=== PATIENT | male | born 1945 | race Caucasian/White ===

== ENCOUNTER 2018-06-17 08:10 | Inpatient (IN) | payer OTHER, MEDICARE ==
[~2018-06-17] VITALS: Ht 172.7 cm; Wt 75.9 kg
[2018-06-17 08:52] LABS: CALCIUM 9.1 mg/dL (8.5-10.1); CARBON DIOXIDE 27.2 mmol/L (21-32); CHLORIDE SERUM 102 mmol/L (98-107); CREATININE SERUM 1.2 mg/dL (0.7-1.3); GLUCOSE SERUM 105 mg/dL (74-106); POTASSIUM SERUM 4.3 mmol/L (3.5-5.1); SODIUM SERUM 139 mmol/L (136-145)
[2018-06-17 08:53] LABS: BASOPHIL % 0.6 % (0-2); PLATELET COUNT 130 x10^3mcL (130-400)
[2018-06-17 08:54] LABS: RED CELL DISTRIBUTION WIDTH 17.2 % (11.5-14.5)
[2018-06-17 08:57] LABS: ALKALINE PHOSPHATASE 123 U/L (46-116); ALT/SGPT 29 U/L (16-63); AST/SGOT 29 U/L (15-37); BILIRUBIN TOTAL 0.5 mg/dL (0.20-1.00); LIPASE 183 IU/L (73-393); TOTAL PROTEIN, SERUM 7.5 g/dL (6.4-8.2)
[2018-06-17] MEDS ORDERED: PRAVASTATIN SOD10 M1 PO (12:47)
[2018-06-17] MEDS ORDERED: XARELTO10 M1 PO (12:47)
[2018-06-17] MEDS ORDERED: MICARDIS80 MG PO (12:47)
[2018-06-17] MEDS ORDERED: BISOPROLOL FUMAR5 MG PO (12:48)
[2018-06-17] MEDS ORDERED: CARDIZEM CD180 MG PO (12:51)
[2018-06-17] MEDS ORDERED: LEVOTHYROXINE0.1 M2 PO (12:52)
[2018-06-17 13:49] LABS: CHOLESTEROL/HDL RATIO 2.7
[2018-06-17 14:00] VITALS: BP 142/68
[2018-06-17 14:19] LABS: microscopic required? NO
[2018-06-17 14:43] LABS: urine erythrocyte NEGATIVE (NEGATIVE)
[2018-06-17 16:33] VITALS: BP 136/73
[2018-06-17 20:33] VITALS: BP 112/51
[2018-06-18 06:07] VITALS: BP 116/68
[2018-06-18 06:49] LABS: CALCIUM 8.8 mg/dL (8.5-10.1); CARBON DIOXIDE 26.5 mmol/L (21-32); CHLORIDE SERUM 108 mmol/L (98-107); CREATININE SERUM 1.1 mg/dL (0.7-1.3); GLUCOSE SERUM 82 mg/dL (74-106); POTASSIUM SERUM 4.1 mmol/L (3.5-5.1); SODIUM SERUM 143 mmol/L (136-145)
[2018-06-18 07:58] LABS: PLATELET COUNT 103 x10^3mcL (130-400); RED CELL DISTRIBUTION WIDTH 16.4 % (11.5-14.5)
[2018-06-18 07:59] LABS: BASOPHIL % 0.9 % (0-2)
[2018-06-18 09:15] VITALS: BP 144/74
[2018-06-18 12:40] VITALS: BP 135/67
[2018-06-18 14:45] VITALS: BP 129/57
[2018-06-18 17:51] VITALS: BP 143/64
[2018-06-18 20:41] VITALS: BP 124/51
[2018-06-19 06:31] VITALS: BP 133/65
[2018-06-19 06:43] LABS: CALCIUM 8.9 mg/dL (8.5-10.1); CARBON DIOXIDE 29.7 mmol/L (21-32); CHLORIDE SERUM 106 mmol/L (98-107); CREATININE SERUM 1.1 mg/dL (0.7-1.3); GLUCOSE SERUM 95 mg/dL (74-106); POTASSIUM SERUM 4.1 mmol/L (3.5-5.1); SODIUM SERUM 144 mmol/L (136-145)
[2018-06-19 06:59] LABS: BASOPHIL % 1.1 % (0-2); PLATELET COUNT 131 x10^3mcL (130-400); RED CELL DISTRIBUTION WIDTH 16.5 % (11.5-14.5)
[2018-06-19 12:39] VITALS: BP 149/72
[2018-06-19 17:52] VITALS: BP 144/68
[2018-06-19 21:28] VITALS: BP 107/71
[2018-06-20 06:59] LABS: CALCIUM 8.9 mg/dL (8.5-10.1); CARBON DIOXIDE 24.8 mmol/L (21-32); CHLORIDE SERUM 102 mmol/L (98-107); CREATININE SERUM 1.1 mg/dL (0.7-1.3); GLUCOSE SERUM 138 mg/dL (74-106); POTASSIUM SERUM 4.1 mmol/L (3.5-5.1); SODIUM SERUM 137 mmol/L (136-145)
[2018-06-20 07:26] LABS: BASOPHIL % 0.1 % (0-2); PLATELET COUNT 103 x10^3mcL (130-400); RED CELL DISTRIBUTION WIDTH 15.9 % (11.5-14.5)
[2018-06-20 13:10] VITALS: BP 146/70
[2018-06-20 17:27] VITALS: BP 112/55
[2018-06-20 18:04] VITALS: Ht 172.7 cm; Wt 75.9 kg
[2018-06-20 22:30] VITALS: BP 141/69
[2018-06-21 07:00] VITALS: BP 162/71
[2018-06-21 07:22] LABS: CALCIUM 8.8 mg/dL (8.5-10.1); CARBON DIOXIDE 27.8 mmol/L (21-32); CHLORIDE SERUM 106 mmol/L (98-107); GLUCOSE SERUM 91 mg/dL (74-106); POTASSIUM SERUM 4.1 mmol/L (3.5-5.1); SODIUM SERUM 141 mmol/L (136-145)
[2018-06-21 07:30] LABS: ALBUMIN 3.1 g/dL (3.4-5.0); BASOPHIL % 0.6 % (0-2); BILIRUBIN DIRECT 0.2 mg/dL (0.0-0.2); BILIRUBIN TOTAL 0.5 mg/dL (0.20-1.00); PLATELET COUNT 102 x10^3mcL (130-400); RED CELL DISTRIBUTION WIDTH 16.5 % (11.5-14.5); TOTAL PROTEIN, SERUM 6.3 g/dL (6.4-8.2)
[2018-06-21 10:00] VITALS: BP 159/73
[2018-06-21] MEDS ORDERED: BACO TOP (11:35)
[2018-06-21] MEDS ORDERED: LOT1C TOP (11:36)
[2018-06-21 12:40] VITALS: BP 142/70
[2018-06-21 13:06] VITALS: BP 142/70
== END 2018-06-21 14:54 | disposition home or self-care (01) | DRG 419 ==
LOC: ED 08:10 → DU 12:34
PROVIDERS: Emergency Medicine; Surgery; ADMIT Family Medicine
PROC: 0FT44ZZ Resection of Gallbladder, Percutaneous Endoscopic Approach (ICD-10-PCS; principal; 2018-06-19 09:00)
DX: K80.20 Calculus of gallbladder without cholecystitis without obstruction (principal); I48.91 Unspecified atrial fibrillation; I10 Essential (primary) hypertension; E78.5 Hyperlipidemia, unspecified; E03.9 Hypothyroidism, unspecified; Z96.612 Presence of left artificial shoulder joint; Z95.0 Presence of cardiac pacemaker; Z95.2 Presence of prosthetic heart valve; Z68.24 Body mass index [BMI] 24.0-24.9, adult; Z79.01 Long term (current) use of anticoagulants
CPT/HCPCS: 83880; A9500; C1758; J0330; J1170; J1885; J2270; J2405; J2543; J2704; J2710; J2785; J3010; J3490; J7030; J7120; Q0092; Q9967